=== PATIENT | male | born 1970 | race Caucasian/White ===

== ENCOUNTER 2023-07-10 07:39 | Day surgery (SDC) | payer BC ==
[~2023-07-10] VITALS: Ht 172.7 cm; Wt 90.7 kg
[2023-07-10] MEDS ORDERED: DIPHENHYDRAMINE INJ 50 MG/ML VIAL ONE (09:33)
[2023-07-10] MEDS ORDERED: MEPERIDINE 100 MG INJ. 100 MG/ML VIAL ONE (09:33)
[2023-07-10] MEDS ORDERED: MIDAZOLAM HCL 5 MG/5 ML VIAL ONE ×2 (09:33→09:43)
[2023-07-10 09:39] VITALS: O2SAT 98
[2023-07-10 11:02] VITALS: BP_SYST 160; PULSE 73; RESP 10
== END 2023-07-10 10:55 | disposition home or self-care (01) ==
LOC: SDS 07:39 → SMU 08:32 → SDS 10:55
PROVIDERS: ATTEND Student in an Organized Health Care Education/Training Program
DX: Z12.11 Encounter for screening for malignant neoplasm of colon (principal); D12.3 Benign neoplasm of transverse colon; D12.8 Benign neoplasm of rectum; D12.5 Benign neoplasm of sigmoid colon; D12.4 Benign neoplasm of descending colon; D12.0 Benign neoplasm of cecum; K64.8 Other hemorrhoids; F17.210 Nicotine dependence, cigarettes, uncomplicated; Z79.899 Other long term (current) drug therapy
CPT/HCPCS: 45385; 45380; 84132; 36415; 88305; 99153; 99152; G0378; J1200; J2250; J2175